=== PATIENT | female | born 1940 | race Caucasian/White ===

== ENCOUNTER 2018-02-21 01:10 | Inpatient (IN) | payer MEDICARE, MEDICAID ==
[2018-02-21 02:27] VITALS: BP 127/62
[2018-02-21] MEDS ORDERED: Maalox 30 mL Cup PO PRN (02:30)
[2018-02-21] MEDS ORDERED: Magnesium Hydroxide (MOM) 30 mL UDC PO PRN (02:30)
[2018-02-21 07:07] LABS: CHOLESTEROL 119 mg/dL (<200); HDL -HIGH DENSITY LIPOPROTEIN 53 mg/dL (23-92); TRIGLYCERIDES 49 mg/dL (<150)
[2018-02-21] MEDS: Multivitamin Tab PO SCH (08:30)
[2018-02-21] MEDS: Levothyroxine 0.05 Mg Tab PO SCH (08:31)
[2018-02-21] MEDS: Lidocaine 5% Patch TD SCH (08:32)
[2018-02-21] MEDS ORDERED: FLUOXETINE PO SCH (09:00)
--- NOTE | 2018-02-21 14:47 | History and Physical ---
History of Present Illness - HPI Chief Complaint: direct admission from acute hospital HPI: This is a 77-year old female who is a direct admission from [facility] due to danger to self ideation of driving off the jessi. Vital Signs: Last Vital Signs Temp 97.7 F 02/21/18 04:54 Pulse 77 02/21/18 04:54 Resp 18 02/21/18 04:54 BP 127/66 02/21/18 04:54 Pulse Ox 97 02/21/18 04:54 Past Medical History Other History: HTN, DM Family Medical History - Family Member Mother History Unknown: Yes Social History Smoke: No Alcohol: None Drugs: None Lives: Alone - Medications Home Medications: Home Medication Medication Instructions Recorded Type Atorvastatin Calcium [Lipitor] 40 mg PO DAILY 02/21/18 History Donepezil HCl [Aricept] 10 mg PO HS 02/21/18 History Fluoxetine [Fluoxetine HCl] 30 mg PO DAILY 02/21/18 History Gabapentin [Neurontin*] 300 mg PO HS 02/21/18 History Levothyroxine [Synthroid] 0.05 mg PO DAILY 02/21/18 History Lidocaine 5% Patch [Lidoderm 5% 5 % DAILY 02/21/18 History Patch] Memantine [Namenda] 5 mg PO DAILY 02/21/18 History metFORMIN [Glucophage] 500 mg PO BID 02/21/18 History - Allergies Allergies/Adverse Reactions: Allergies Allergy/AdvReac Type Severity Reaction Status Date / Time No Known Allergies Allergy Verified 02/21/18 02:14 Review of Systems - Review of Systems Constitutional: Report: No Significant Eyes: Report: No Significant Respiratory: Report: No Significant Cardiovascular: Report: No Significant Neurological: Report: No Significant Physical Exam - Physical Exam HEENT: Report: Ears Nose Throat within normal limits Neck: Report: Within normal limits Cardiovascular Systems: Report: +s1/s2 noted, Regular, Rate and Rhythm Respiratory: Report: Breath Sounds are within normal limits Abdomen: Report: Non-tender to palpation Back: Report: Inspection of back is within normal limits. Skin: Report: Color of skin is within normal limits, Warm, Dry Neuro/Psych: Report: Mood affect is within normal limits - Lab Results All Lab Results last 24 hours: Laboratory Results - last 24 hr 02/21/18 06:36 Triglycerides 49 Cholesterol 119 LDL Cholesterol Direct 52 L HDL Cholesterol 53 - Assessment Assessment: SI HTN DM - Plan Plan: hba1c to be obtained, if elevated will order accucheck ac+hs fall precautions continue current home meds.
[2018-02-21] MEDS: INSULIN ASPART, RECOMBINANT 100 UNITS/ML SUBQ SCH ×2 (17:19→21:01)
--- NOTE | 2018-02-21 22:01 | Psychiatric Evaluation ---
DATE OF SERVICE: 02/21/2018 IDENTIFYING DATA: The patient is a 77-year-old woman admitted for psychosis. CHIEF COMPLAINT: "I don't know, you tell me when I am now." HISTORY OF PRESENT ILLNESS: This is the first psychiatric hospitalization to [facility] for this patient who is reported to have been acutely agitated and confused and is not able to care for herself. Trying to get some information from the patient, but the patient has not been able to provide much of information. The patient is going on a tangent and is stating that she needs to give a kiss and a hug her to someone that has been taking care of her. The patient is stating that she has a daughter, but she has no clue of how to get in touch with her. The patient has not been able to provide much of information. Sleep and appetite prior to the hospitalization are reported to be poor. The patient is not giving any information that she is seeing any psychiatrist. PAST PSYCHIATRIC HISTORY: Details are not known. MEDICAL HISTORY AND PHYSICAL EXAMINATION: Requested to be done by Dr. Ryan. SUBSTANCE ABUSE HISTORY: None. PHYSICAL OR SEXUAL ABUSE HISTORY: None. LEGAL PROBLEMS: None at this time. STRENGTH AND ASSETS: The patient seems to be motivated. MENTAL STATUS EXAMINATION: The patient is a 77-year-old, looking her stated age, superficially cooperative. Mood is noted to be depressed. Affect is constricted. The patient is extremely anxious. The patient is not able to provide much of any information. The attention span and concentration are noted to be very poor. The patient is very confused, short and long-term are also noted to be very much impaired. The patient is not able to recall her date of . DIAGNOSTIC IMPRESSION: AXIS I: Psychotic disorder, not otherwise specified. IB. Dementia and behavioral change, secondary trait. AXIS II: None. AXIS III: As per Dr. Ryan. IMMEDIATE TREATMENT PLAN: The patient is going to be observed on inpatient unit, provided with supportive psychotherapy. The patient is going to be encouraged to participate in the groups and verbalize the concerns. Once stabilized, the patient is going to be discharged to [facility] to be followed up on an outpatient basis. JOB# [id number]
[2018-02-22] MEDS: INSULIN ASPART, RECOMBINANT 100 UNITS/ML SUBQ SCH ×4 (06:36→21:10)
[2018-02-22] MEDS: Levothyroxine 0.05 Mg Tab PO SCH (08:46)
[2018-02-22] MEDS: Multivitamin Tab PO SCH (08:47)
[2018-02-22] MEDS: Lidocaine 5% Patch TD SCH (08:47)
--- NOTE | 2018-02-22 15:53 | Internal Medicine Prog Note ---
Internal Medicine Subjective - Subjective Service Date: 02/22/18 Patient seen and examined:: with staff Patient is:: awake, verbal, other (with some confusion) Per staff patient has:: tolerating meds Internal Medicine Objective - Results Recent Labs: Laboratory Last Values POC Glucose 87 MG/DL (70 - 105) 02/21/18 21:00 Triglycerides 49 mg/dL (<150) 02/21/18 06:36 Cholesterol 119 mg/dL (<200) 02/21/18 06:36 LDL Cholesterol Direct 52 mg/dL (75-193) L 02/21/18 06:36 HDL Cholesterol 53 mg/dL (23-92) 02/21/18 06:36 - Physical Exam Vitals and I&O: Vital Signs Temp 97.6 F 02/22/18 05:30 Pulse 73 02/22/18 05:30 Resp 19 02/22/18 05:30 BP 121/69 02/22/18 05:30 Pulse Ox 98 02/22/18 05:30 Intake & Output 02/21/18 02/22/18 02/22/18 18:59 06:59 18:59 Intake Total 480 Balance 480 Intake: Oral 480 Other: # Voids 2 Stool Characteristics Soft Soft Soft Active Medications: Current Medications Acetaminophen (Tylenol) 650 mg PO Q4HR PRN PRN Reason: Mild Pain / Temp above 100 Stop: 04/22/18 02:29 Al Hydrox/Mg Hydrox/Simethicone (Maalox) 30 ml PO Q4HR PRN PRN Reason: GI DISTRESS Stop: 04/22/18 02:29 Atorvastatin Calcium (Lipitor) 40 mg PO DAILY COUNT INCLUDES [facility] Stop: 04/22/18 08:59 Last Admin: 02/22/18 08:45 Dose: 40 mg Donepezil HCl (Aricept) 10 mg PO HS COUNT INCLUDES [facility] Stop: 04/22/18 20:59 Last Admin: 02/21/18 21:03 Dose: 10 mg Fluoxetine HCl (Prozac) 20 mg PO DAILY COUNT INCLUDES THE [facility] Stop: 04/23/18 08:59 Last Admin: 02/22/18 08:46 Dose: 20 mg Gabapentin (Neurontin) 300 mg PO HS COUNT INCLUDES THE [facility] Stop: 04/22/18 20:59 Last Admin: 02/21/18 21:02 Dose: 300 mg Insulin Aspart (Novolog) 0 units SUBQ ACHS COUNT INCLUDES THE [facility]; Protocol Stop: 04/22/18 16:29 Last Admin: 02/22/18 12:13 Dose: Not Given Levothyroxine Sodium (Synthroid) 0.05 mg PO DAILY COUNT INCLUDES THE [facility] Stop: 04/22/18 08:59 Last Admin: 02/22/18 08:46 Dose: 0.05 mg Lidocaine (Lidoderm 5% Patch) 1 patch TD DAILY [facility] Stop: 04/22/18 08:59 Last Admin: 02/22/18 08:47 Dose: 1 patch Lorazepam (Ativan) 0.5 mg PO Q4HR PRN; Protocol PRN Reason: Anxiety Stop: 03/23/18 02:29 Magnesium Hydroxide (Milk Of Magnesia) 30 ml PO HS PRN PRN Reason: Constipation Memantine (Namenda) 5 mg PO DAILY COUNT INCLUDES THE [facility] Stop: 04/22/18 08:59 Last Admin: 02/22/18 08:54 Dose: 5 mg Metformin HCl (Glucophage) 500 mg PO BIDWM COUNT INCLUDES THE [facility] Stop: 04/22/18 07:59 Last Admin: 02/22/18 08:45 Dose: 500 mg Multivitamins/Vitamin C (Theragran) 1 tab PO DAILY [facility] Stop: 04/22/18 08:59 Last Admin: 02/22/18 08:47 Dose: 1 tab Zolpidem Tartrate (Ambien) 5 mg PO HS PRN PRN Reason: Insomnia Stop: 04/22/18 02:29 General: alert HEENT: NC/AT, PERRLA Neck: Supple Lungs: CTAB Cardiovascular: RRR, Normal S1, Normal S2, without murmur Abdomen: soft, non-tender, non-distended Neurological: alert Internal Medicine Assmt/Plan - Assessment Assessment: SI HTN DM - Plan Plan: await for a1c fall precautions continue current plan of care
--- NOTE | 2018-02-22 23:43 | Progress Notes ---
DATE: 02/22/2018 Staff was spoken to. The patient is interviewed. Mood is noted to be irritable. Affect is constricted. Insight and judgment at this time are noted to be still impaired. Impulse control is noted to be poor. Coping skills are also noted to be very poor. The patient has been a little bit clearer this morning compared to last night. The patient has been confused at night time yesterday. The patient is stating that there is nothing wrong with her. She should be with her daughter. The patient's daughter is [place]. The patient is stating that she is going to go there. The patient has no insight into her illness. The patient is not able to care for self. The patient has both short term memories major problem long-term memory seems to be little bit fair. ASSESSMENT: The patient is still psychotic and demented. PLAN: To continue the patient with the supportive therapy and encourage the patient to verbalize the consent rather than to act out. [facility]# [id number]
[2018-02-23] MEDS: INSULIN ASPART, RECOMBINANT 100 UNITS/ML SUBQ SCH ×4 (06:36→21:45)
[2018-02-23] MEDS: Multivitamin Tab PO SCH (08:30)
[2018-02-23] MEDS: Levothyroxine 0.05 Mg Tab PO SCH (08:30)
[2018-02-23] MEDS: Lidocaine 5% Patch TD SCH (09:49)
--- NOTE | 2018-02-23 11:22 | Progress Notes ---
DATE: 02/23/2018 SUBJECTIVE: Staff was spoken to. The patient is interviewed. Mood is noted to be anxious and depressed. Affect is constricted. Coping skills are noted to be very poor. The patient is getting easily frustrated. No side effects to the medications are noted. The patient has been currently on Prozac 20 mg and has been able to tolerate the medications. No side effect to the medications are noted. ASSESSMENT: The patient is still depressed and confused. PLAN: To continue the patient with the supportive therapy. We encouraged the patient to verbalize the concerns rather than to act out. The patient has no place to return at this time. JOB# [id number]
--- NOTE | 2018-02-23 13:25 | Internal Medicine Prog Note ---
Internal Medicine Subjective - Subjective Patient seen and examined:: with staff, chart reviewed Patient is:: awake, verbal, interactive, other (with some confusion) Per staff patient has:: no adverse event, no episodes of fall, poor appetite, tolerating meds Internal Medicine Objective - Results Recent Labs: Laboratory Last Values POC Glucose 97 MG/DL (70 - 105) 02/23/18 11:22 Triglycerides 49 mg/dL (<150) 02/21/18 06:36 Cholesterol 119 mg/dL (<200) 02/21/18 06:36 LDL Cholesterol Direct 52 mg/dL (75-193) L 02/21/18 06:36 HDL Cholesterol 53 mg/dL (23-92) 02/21/18 06:36 - Physical Exam Vitals and I&O: Vital Signs Temp 98.1 F 02/23/18 06:51 Pulse 68 02/23/18 06:51 Resp 19 02/23/18 06:51 BP 106/69 02/23/18 06:51 Pulse Ox 98 02/23/18 06:51 Intake & Output 02/22/18 02/23/18 02/23/18 18:59 06:59 18:59 Intake Total 120 Balance 120 Intake: Oral 120 Other: # Voids 3 Stool Characteristics Soft Soft Soft Active Medications: Current Medications Acetaminophen (Tylenol) 650 mg PO Q4HR PRN PRN Reason: Mild Pain / Temp above 100 Stop: 04/22/18 02:29 Al Hydrox/Mg Hydrox/Simethicone (Maalox) 30 ml PO Q4HR PRN PRN Reason: GI DISTRESS Stop: 04/22/18 02:29 Atorvastatin Calcium (Lipitor) 40 mg PO DAILY [facility] Stop: 04/22/18 08:59 Last Admin: 02/23/18 08:32 Dose: 40 mg Donepezil HCl (Aricept) 10 mg PO HS [facility] Stop: 04/22/18 20:59 Last Admin: 02/22/18 21:09 Dose: 10 mg Fluoxetine HCl (Prozac) 20 mg PO DAILY [facility] Stop: 04/23/18 08:59 Last Admin: 02/23/18 08:31 Dose: 20 mg Gabapentin (Neurontin) 300 mg PO HS [facility] Stop: 04/22/18 20:59 Last Admin: 02/22/18 21:09 Dose: 300 mg Insulin Aspart (Novolog) 0 units SUBQ ACHS [facility]; Protocol Stop: 04/22/18 16:29 Last Admin: 02/23/18 11:45 Dose: Not Given Levothyroxine Sodium (Synthroid) 0.05 mg PO DAILY [facility] Stop: 04/22/18 08:59 Last Admin: 02/23/18 08:30 Dose: 0.05 mg Lidocaine (Lidoderm 5% Patch) 1 patch TD DAILY [facility] Stop: 04/22/18 08:59 Last Admin: 02/23/18 09:49 Dose: 1 patch Lorazepam (Ativan) 0.5 mg PO Q4HR PRN; Protocol PRN Reason: Anxiety Stop: 03/23/18 02:29 Magnesium Hydroxide (Milk Of Magnesia) 30 ml PO HS PRN PRN Reason: Constipation Memantine (Namenda) 5 mg PO DAILY [facility] Stop: 04/22/18 08:59 Last Admin: 02/23/18 08:30 Dose: 5 mg Metformin HCl (Glucophage) 500 mg PO BIDWM [facility] Stop: 04/22/18 07:59 Last Admin: 02/23/18 08:31 Dose: 500 mg Multivitamins/Vitamin C (Theragran) 1 tab PO DAILY [facility] Stop: 04/22/18 08:59 Last Admin: 02/23/18 08:30 Dose: 1 tab Zolpidem Tartrate (Ambien) 5 mg PO HS PRN PRN Reason: Insomnia Stop: 04/22/18 02:29 General: alert HEENT: NC/AT, PERRLA Neck: Supple Lungs: CTAB Cardiovascular: RRR, Normal S1, Normal S2, without murmur Abdomen: soft, non-tender, non-distended Extremities: excoriation Neurological: alert Internal Medicine Assmt/Plan - Assessment Assessment: hypothyroidism high chol HTN DM - Plan Plan: await for a1c fall precautions continue current plan of care - Plan Plan: ada iss cont on synthroid cpm helen rn
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
[2018-02-24] MEDS: INSULIN ASPART, RECOMBINANT 100 UNITS/ML SUBQ SCH ×4 (06:33→21:55)
[2018-02-24] MEDS: Multivitamin Tab PO SCH (08:40)
[2018-02-24] MEDS: Lidocaine 5% Patch TD SCH (08:46)
--- NOTE | 2018-02-24 12:51 | Internal Medicine Prog Note ---
Internal Medicine Subjective - Subjective Patient seen and examined:: with staff, chart reviewed Patient is:: awake, verbal, interactive, other (with some confusion) Per staff patient has:: no adverse event, no episodes of fall, poor appetite, tolerating meds Internal Medicine Objective - Results Recent Labs: Laboratory Last Values POC Glucose 100 MG/DL (70 - 105) 02/24/18 06:08 Triglycerides 49 mg/dL (<150) 02/21/18 06:36 Cholesterol 119 mg/dL (<200) 02/21/18 06:36 LDL Cholesterol Direct 52 mg/dL (75-193) L 02/21/18 06:36 HDL Cholesterol 53 mg/dL (23-92) 02/21/18 06:36 - Physical Exam Vitals and I&O: Vital Signs Temp 98 F 02/23/18 20:17 Pulse 59 02/23/18 20:17 Resp 19 02/23/18 20:17 BP 105/52 02/23/18 20:17 Pulse Ox 95 02/23/18 20:17 Intake & Output 02/23/18 02/24/18 02/24/18 18:59 06:59 18:59 Intake Total 120 Balance 120 Intake: Oral 120 Other: # Voids 1 Stool Characteristics Soft Soft Soft Active Medications: Current Medications Acetaminophen (Tylenol) 650 mg PO Q4HR PRN PRN Reason: Mild Pain / Temp above 100 Stop: 04/22/18 02:29 Al Hydrox/Mg Hydrox/Simethicone (Maalox) 30 ml PO Q4HR PRN PRN Reason: GI DISTRESS Stop: 04/22/18 02:29 Atorvastatin Calcium (Lipitor) 40 mg PO DAILY [facility] Stop: 04/22/18 08:59 Last Admin: 02/24/18 08:38 Dose: 40 mg Donepezil HCl (Aricept) 10 mg PO HS [facility] Stop: 04/22/18 20:59 Last Admin: 02/23/18 21:45 Dose: 10 mg Fluoxetine HCl (Prozac) 20 mg PO DAILY [facility] Stop: 04/23/18 08:59 Last Admin: 02/24/18 08:39 Dose: 20 mg Gabapentin (Neurontin) 300 mg PO HS [facility] Stop: 04/22/18 20:59 Last Admin: 02/23/18 21:45 Dose: 300 mg Insulin Aspart (Novolog) 0 units SUBQ ACHS [facility]; Protocol Stop: 04/22/18 16:29 Last Admin: 02/24/18 06:33 Dose: Not Given Levothyroxine Sodium (Synthroid) 0.05 mg PO DAILY [facility] Stop: 04/22/18 08:59 Last Admin: 02/23/18 08:30 Dose: 0.05 mg Lidocaine (Lidoderm 5% Patch) 1 patch TD DAILY [facility] Stop: 04/22/18 08:59 Last Admin: 02/24/18 08:46 Dose: 1 patch Lorazepam (Ativan) 0.5 mg PO Q4HR PRN; Protocol PRN Reason: Anxiety Stop: 03/23/18 02:29 Last Admin: 02/24/18 12:42 Dose: 0.5 mg Magnesium Hydroxide (Milk Of Magnesia) 30 ml PO HS PRN PRN Reason: Constipation Memantine (Namenda) 5 mg PO DAILY [facility] Stop: 04/22/18 08:59 Last Admin: 02/24/18 08:40 Dose: 5 mg Metformin HCl (Glucophage) 500 mg PO BIDWM [facility] Stop: 04/22/18 07:59 Last Admin: 02/24/18 08:40 Dose: 500 mg Multivitamins/Vitamin C (Theragran) 1 tab PO DAILY [facility] Stop: 04/22/18 08:59 Last Admin: 02/24/18 08:40 Dose: 1 tab Zolpidem Tartrate (Ambien) 5 mg PO HS PRN PRN Reason: Insomnia Stop: 04/22/18 02:29 General: alert HEENT: NC/AT, PERRLA Neck: Supple Lungs: CTAB Cardiovascular: RRR, Normal S1, Normal S2, without murmur Abdomen: soft, non-tender, non-distended Extremities: excoriation Neurological: alert Internal Medicine Assmt/Plan - Assessment Assessment: hypothyroidism high chol HTN DM - Plan Plan: await for a1c fall precautions continue current plan of care - Plan Plan: ada iss cont on synthroid cpm helen rn
--- NOTE | 2018-02-25 00:47 | Progress Notes ---
DATE: 02/24/2018 SUBJECTIVE: Staff was spoken to. The patient is interviewed. Mood is noted to be irritable. Affect is constricted. The patient is stating that there is no reason for her to be in the hospital and that she should be back at home. The patient is stating that she has a plan to go to [place] with her daughter. The patient, however, does not know the number of her daughter. The patient has been currently on Namenda and Aricept and the patient is also getting the Prozac 20 mg for her depression. ASSESSMENT: The patient is still confused and paranoid. PLAN: To continue the patient with the supportive therapy. Encouraged the patient to verbalize the concerns rather than to act out. JOB# [id number]
[2018-02-25] MEDS: Levothyroxine 0.05 Mg Tab PO SCH (06:38)
[2018-02-25] MEDS: INSULIN ASPART, RECOMBINANT 100 UNITS/ML SUBQ SCH ×3 (06:39→21:30)
[2018-02-25] MEDS: Multivitamin Tab PO SCH (08:17)
[2018-02-25] MEDS: Lidocaine 5% Patch TD SCH (08:39)
[2018-02-25] MEDS: Diphenoxylate/Atropine 2.5mg Tab PO PRN (12:52)
--- NOTE | 2018-02-25 12:55 | Progress Notes ---
DATE: 02/25/2018 SUBJECTIVE: Staff was spoken to. The patient is interviewed. Mood is noted to be irritable. Affect is constricted. Coping skills at this time are noted to be poor. The patient has been having difficult time to cope with the stress. No side effects to the medications are noted at this time. The patient has been depressed and 1 minute. The patient is stating that she has been waiting for the geriatric social worker to call her daughter and the next minute, she is saying that she already spoke to her daughter and it is okay with her to go. The patient is confabulating at this time and not able to care for self. The patient is going to be continued with Prozac and followed with the supportive therapy. [facility]# [id number]
--- NOTE | 2018-02-25 16:08 | Internal Medicine Prog Note ---
Internal Medicine Subjective - Subjective Service Date: 02/25/18 Patient is:: awake, verbal, interactive, other (with some confusion) Per staff patient has:: no adverse event, no episodes of fall, poor appetite, tolerating meds Internal Medicine Objective - Results Recent Labs: Laboratory Last Values POC Glucose 124 MG/DL (70 - 105) H 02/25/18 11:50 Triglycerides 49 mg/dL (<150) 02/21/18 06:36 Cholesterol 119 mg/dL (<200) 02/21/18 06:36 LDL Cholesterol Direct 52 mg/dL (75-193) L 02/21/18 06:36 HDL Cholesterol 53 mg/dL (23-92) 02/21/18 06:36 - Physical Exam Vitals and I&O: Vital Signs Temp 97.6 F 02/25/18 14:00 Pulse 66 02/25/18 14:00 Resp 18 02/25/18 14:00 BP 100/58 02/25/18 14:00 Pulse Ox 95 02/25/18 14:00 Intake & Output 02/24/18 02/25/18 02/25/18 18:59 06:59 18:59 Intake Total 240 Balance 240 Intake: Oral 240 Other: # Voids 3 # Bowel Movements 4 0 Stool Characteristics Soft Soft Soft Active Medications: Current Medications Acetaminophen (Tylenol) 650 mg PO Q4HR PRN PRN Reason: Mild Pain / Temp above 100 Stop: 04/22/18 02:29 Al Hydrox/Mg Hydrox/Simethicone (Maalox) 30 ml PO Q4HR PRN PRN Reason: GI DISTRESS Stop: 04/22/18 02:29 Atorvastatin Calcium (Lipitor) 40 mg PO DAILY [facility] Stop: 04/22/18 08:59 Last Admin: 02/25/18 08:17 Dose: 40 mg Diphenoxylate HCl/Atropine (Lomotil) 1 tab PO Q4H PRN PRN Reason: Diarrhea Stop: 04/26/18 11:56 Last Admin: 02/25/18 12:52 Dose: 1 tab Donepezil HCl (Aricept) 10 mg PO HS [facility] Stop: 04/22/18 20:59 Last Admin: 02/24/18 21:40 Dose: 10 mg Fluoxetine HCl (Prozac) 20 mg PO DAILY [facility] Stop: 04/23/18 08:59 Last Admin: 02/25/18 08:17 Dose: 20 mg Gabapentin (Neurontin) 300 mg PO HS [facility] Stop: 04/22/18 20:59 Last Admin: 02/24/18 21:39 Dose: 300 mg Insulin Aspart (Novolog) 0 units SUBQ ACHS [facility]; Protocol Stop: 04/22/18 16:29 Last Admin: 02/25/18 12:00 Dose: Not Given Levothyroxine Sodium (Synthroid) 0.05 mg PO QDAC [facility] Stop: 04/26/18 07:29 Last Admin: 02/25/18 06:38 Dose: 0.05 mg Lidocaine (Lidoderm 5% Patch) 1 patch TD DAILY [facility] Stop: 04/22/18 08:59 Last Admin: 02/25/18 08:39 Dose: 1 patch Lorazepam (Ativan) 0.5 mg PO Q4HR PRN; Protocol PRN Reason: Anxiety Stop: 03/23/18 02:29 Last Admin: 02/24/18 12:42 Dose: 0.5 mg Magnesium Hydroxide (Milk Of Magnesia) 30 ml PO HS PRN PRN Reason: Constipation Memantine (Namenda) 5 mg PO DAILY [facility] Stop: 04/22/18 08:59 Last Admin: 02/25/18 08:17 Dose: 5 mg Metformin HCl (Glucophage) 500 mg PO BIDWM [facility] Stop: 04/22/18 07:59 Last Admin: 02/25/18 08:24 Dose: Not Given Multivitamins/Vitamin C (Theragran) 1 tab PO DAILY [facility] Stop: 04/22/18 08:59 Last Admin: 02/25/18 08:17 Dose: 1 tab Zolpidem Tartrate (Ambien) 5 mg PO HS PRN PRN Reason: Insomnia Stop: 04/22/18 02:29 General: alert HEENT: NC/AT, PERRLA Neck: Supple Lungs: CTAB Cardiovascular: RRR, Normal S1, Normal S2, without murmur Abdomen: soft, non-tender, non-distended Extremities: excoriation Neurological: alert Internal Medicine Assmt/Plan - Assessment Assessment: SI HTN DM - Plan Plan: await for a1c fall precautions continue current plan of care Nutritional Asmnt/Malnutr-PDOC - Dietary Evaluation Malnutrition Findings (Please click <Entered> for more info): Nutritional Asmnt/Malnutrition Start: 02/25/18 09: 59 Text: Status: Complete Freq: Protocol: Document 02/25/18 09:59 CLEOPATRA (Rec: 02/25/18 10:05 CLEOPATRA JAMA- [email or web address]) Nutritional Asmnt/Malnutrition Patient General Information Diagnosis psychosis Pertinent Medical Hx/Surgical Hx HTN, DM, SI, high cholesterol, hypothyroidism Subjective Information Pt asleep at time of visit Current Diet Order/ Nutrition Support cardiac diabetic diet Pertinent Medications maalox, lipitor, novolog, synthroid, MOM, glucophage, theragran Pertinent Labs no labs Nutritional Hx/Data Height 5 ft 2 in Height (Calculated Centimeters) 157.5 Current Weight (lbs) 147 lb Weight (Calculated Kilograms) 66.7 Weight (Calculated Grams) 26397.1 Body Mass Index (BMI) 26.9 Weight Status Overweight GI Symptoms GI Symptoms None Last BM 02/24 Cultural/Ethnic/Orthodoxy Belief unknown Usual diet at home cardiac Skin Integrity/Comment: ramesh score 22 Current %PO Fair (50-74%) Estimated Nutritional Goals BEE in Kcals: Using Current wt Calories/Kcals/Kg 25-30kcals/kg Kcals Calculated 1675-2010kcals/day Protein: Using Current wt Protein g/kg/kg Protein Calculated 67g/day Fluid: ml 1675-2010ml/day (1ml/kcal) Nutritional Problem 1. Problem Problem No nutrition diagnosis at this time Intervention/Recommendation Comments Recommend continuing Cardiac diabetic diet. Expected Outcomes/Goals Expected Outcomes/Goals PO intake >75% of meals
[2018-02-26] MEDS: Levothyroxine 0.05 Mg Tab PO SCH (06:52)
[2018-02-26] MEDS: Multivitamin Tab PO SCH (09:29)
[2018-02-26] MEDS: INSULIN ASPART, RECOMBINANT 100 UNITS/ML SUBQ SCH ×3 (12:02→21:17)
[2018-02-26] MEDS: Lidocaine 5% Patch TD SCH (12:03)
--- NOTE | 2018-02-26 15:52 | Internal Medicine Prog Note ---
Internal Medicine Subjective - Subjective Service Date: 02/26/18 Patient is:: awake, verbal, interactive, other (with some confusion) Per staff patient has:: no adverse event, no episodes of fall, poor appetite, tolerating meds Internal Medicine Objective - Results Recent Labs: Laboratory Last Values POC Glucose 114 MG/DL (70 - 105) H 02/26/18 12:01 Triglycerides 49 mg/dL (<150) 02/21/18 06:36 Cholesterol 119 mg/dL (<200) 02/21/18 06:36 LDL Cholesterol Direct 52 mg/dL (75-193) L 02/21/18 06:36 HDL Cholesterol 53 mg/dL (23-92) 02/21/18 06:36 - Physical Exam Vitals and I&O: Vital Signs Temp 97.2 F 02/26/18 06:49 Pulse 61 02/26/18 06:49 Resp 20 02/26/18 06:49 BP 118/61 02/26/18 06:49 Pulse Ox 98 02/26/18 06:49 Intake & Output 02/25/18 02/26/18 02/26/18 18:59 06:59 18:59 Intake Total 800 370 Output Total 0 Balance 800 370 Intake: Oral 800 370 Output: Stool 0 Other: # Voids 3 3 # Bowel Movements 1 Stool Characteristics Soft Soft Soft Active Medications: Current Medications Acetaminophen (Tylenol) 650 mg PO Q4HR PRN PRN Reason: Mild Pain / Temp above 100 Stop: 04/22/18 02:29 Al Hydrox/Mg Hydrox/Simethicone (Maalox) 30 ml PO Q4HR PRN PRN Reason: GI DISTRESS Stop: 04/22/18 02:29 Atorvastatin Calcium (Lipitor) 40 mg PO DAILY [facility] Stop: 04/22/18 08:59 Last Admin: 02/26/18 09:28 Dose: 40 mg Diphenoxylate HCl/Atropine (Lomotil) 1 tab PO Q4H PRN PRN Reason: Diarrhea Stop: 04/26/18 11:56 Last Admin: 02/25/18 12:52 Dose: 1 tab Donepezil HCl (Aricept) 10 mg PO HS [facility] Stop: 04/22/18 20:59 Last Admin: 02/25/18 22:18 Dose: 10 mg Fluoxetine HCl (Prozac) 20 mg PO DAILY [facility] Stop: 04/23/18 08:59 Last Admin: 02/26/18 09:29 Dose: 20 mg Gabapentin (Neurontin) 300 mg PO HS [facility] Stop: 04/22/18 20:59 Last Admin: 02/25/18 22:18 Dose: 300 mg Insulin Aspart (Novolog) 0 units SUBQ ACHS [facility]; Protocol Stop: 04/22/18 16:29 Last Admin: 02/26/18 12:02 Dose: Not Given Levothyroxine Sodium (Synthroid) 0.05 mg PO QDAC [facility] Stop: 04/26/18 07:29 Last Admin: 02/26/18 06:52 Dose: 0.05 mg Lidocaine (Lidoderm 5% Patch) 1 patch TD DAILY [facility] Stop: 04/22/18 08:59 Last Admin: 02/26/18 12:03 Dose: Not Given Lorazepam (Ativan) 0.5 mg PO Q4HR PRN; Protocol PRN Reason: Anxiety Stop: 03/23/18 02:29 Last Admin: 02/24/18 12:42 Dose: 0.5 mg Magnesium Hydroxide (Milk Of Magnesia) 30 ml PO HS PRN PRN Reason: Constipation Memantine (Namenda) 5 mg PO DAILY [facility] Stop: 04/22/18 08:59 Last Admin: 02/26/18 09:29 Dose: 5 mg Metformin HCl (Glucophage) 500 mg PO BIDWM [facility] Stop: 04/22/18 07:59 Last Admin: 02/26/18 09:29 Dose: 500 mg Multivitamins/Vitamin C (Theragran) 1 tab PO DAILY [facility] Stop: 04/22/18 08:59 Last Admin: 02/26/18 09:29 Dose: 1 tab Zolpidem Tartrate (Ambien) 5 mg PO HS PRN PRN Reason: Insomnia Stop: 04/22/18 02:29 General: alert HEENT: NC/AT, PERRLA Neck: Supple Lungs: CTAB Cardiovascular: RRR, Normal S1, Normal S2, without murmur Abdomen: soft, non-tender, non-distended Extremities: excoriation Neurological: alert Internal Medicine Assmt/Plan - Assessment Assessment: SI HTN DM - Plan Plan: await for a1c fall precautions continue current plan of care Nutritional Asmnt/Malnutr-PDOC - Dietary Evaluation Malnutrition Findings (Please click <Entered> for more info): Nutritional Asmnt/Malnutrition Start: 02/25/18 09: 59 Text: Status: Complete Freq: Protocol: Document 02/25/18 09:59 CLEOPATRA (Rec: 02/25/18 10:05 CLEOPATRA JAMA- [email or web address]) Nutritional Asmnt/Malnutrition Patient General Information Diagnosis psychosis Pertinent Medical Hx/Surgical Hx HTN, DM, SI, high cholesterol, hypothyroidism Subjective Information Pt asleep at time of visit Current Diet Order/ Nutrition Support cardiac diabetic diet Pertinent Medications maalox, lipitor, novolog, synthroid, MOM, glucophage, theragran Pertinent Labs no labs Nutritional Hx/Data Height 5 ft 2 in Height (Calculated Centimeters) 157.5 Current Weight (lbs) 147 lb Weight (Calculated Kilograms) 66.7 Weight (Calculated Grams) 33611.1 Body Mass Index (BMI) 26.9 Weight Status Overweight GI Symptoms GI Symptoms None Last BM 02/24 Cultural/Ethnic/Pentecostalism Belief unknown Usual diet at home cardiac Skin Integrity/Comment: ramesh score 22 Current %PO Fair (50-74%) Estimated Nutritional Goals BEE in Kcals: Using Current wt Calories/Kcals/Kg 25-30kcals/kg Kcals Calculated 1675-2010kcals/day Protein: Using Current wt Protein g/kg/kg Protein Calculated 67g/day Fluid: ml 1675-2010ml/day (1ml/kcal) Nutritional Problem 1. Problem Problem No nutrition diagnosis at this time Intervention/Recommendation Comments Recommend continuing Cardiac diabetic diet. Expected Outcomes/Goals Expected Outcomes/Goals PO intake >75% of meals
--- NOTE | 2018-02-26 20:59 | Progress Notes ---
DATE: 02/26/2018 PSYCHIATRIC PROGRESS NOTE SUBJECTIVE: Staff was spoken to. The patient is interviewed. Mood is noted to be anxious. The patient's insight and judgment at this time are noted to be still impaired. The patient has some memory problems, but the patient is reporting that she has to get back to her place and she states that when asked about the place where she has been referring to, the patient has not been able to remember it. manager in home has been spoken to the idea is to get the patient to the residential facility first and once the patient is stabilized over there, the patient's daughter wants to take her to the [place]. The patient is currently on Seroquel 25 mg twice a day and ____ 250 mg twice a day. PLAN: The patient is going to be closely monitored and encouraged to verbalize the concerns rather than to act out. JOB# [id number]
[2018-02-27] MEDS: Levothyroxine 0.05 Mg Tab PO SCH (06:33)
[2018-02-27] MEDS: INSULIN ASPART, RECOMBINANT 100 UNITS/ML SUBQ SCH ×4 (06:33→20:23)
[2018-02-27] MEDS: Multivitamin Tab PO SCH (09:04)
--- NOTE | 2018-02-27 14:01 | Internal Medicine Prog Note ---
Internal Medicine Subjective - Subjective Service Date: 02/27/18 Patient is:: awake, verbal, interactive, other (with some confusion) Per staff patient has:: no adverse event, no episodes of fall, poor appetite, tolerating meds Internal Medicine Objective - Results Recent Labs: Laboratory Last Values POC Glucose 94 MG/DL (70 - 105) 02/27/18 06:20 Triglycerides 49 mg/dL (<150) 02/21/18 06:36 Cholesterol 119 mg/dL (<200) 02/21/18 06:36 LDL Cholesterol Direct 52 mg/dL (75-193) L 02/21/18 06:36 HDL Cholesterol 53 mg/dL (23-92) 02/21/18 06:36 - Physical Exam Vitals and I&O: Vital Signs Temp 97.8 F 02/27/18 06:27 Pulse 57 02/27/18 06:27 Resp 19 02/27/18 06:27 BP 118/57 02/27/18 06:27 Pulse Ox 98 02/27/18 06:27 Intake & Output 02/26/18 02/27/18 02/27/18 18:59 06:59 18:59 Intake Total 300 Balance 300 Intake: Other 300 Other: # Voids 3 # Bowel Movements 0 Stool Characteristics Soft Soft Active Medications: Current Medications Acetaminophen (Tylenol) 650 mg PO Q4HR PRN PRN Reason: Mild Pain / Temp above 100 Stop: 04/22/18 02:29 Al Hydrox/Mg Hydrox/Simethicone (Maalox) 30 ml PO Q4HR PRN PRN Reason: GI DISTRESS Stop: 04/22/18 02:29 Atorvastatin Calcium (Lipitor) 40 mg PO DAILY [facility] Stop: 04/22/18 08:59 Last Admin: 02/27/18 09:04 Dose: 40 mg Diphenoxylate HCl/Atropine (Lomotil) 1 tab PO Q4H PRN PRN Reason: Diarrhea Stop: 04/26/18 11:56 Last Admin: 02/25/18 12:52 Dose: 1 tab Donepezil HCl (Aricept) 10 mg PO HS [facility] Stop: 04/22/18 20:59 Last Admin: 02/26/18 20:32 Dose: 10 mg Fluoxetine HCl (Prozac) 20 mg PO DAILY [facility] Stop: 04/23/18 08:59 Last Admin: 02/27/18 09:04 Dose: 20 mg Gabapentin (Neurontin) 300 mg PO HS [facility] Stop: 04/22/18 20:59 Last Admin: 02/26/18 20:32 Dose: 300 mg Insulin Aspart (Novolog) 0 units SUBQ ACHS [facility]; Protocol Stop: 04/22/18 16:29 Last Admin: 02/27/18 12:11 Dose: Not Given Levothyroxine Sodium (Synthroid) 0.05 mg PO QDAC [facility] Stop: 04/26/18 07:29 Last Admin: 02/27/18 06:33 Dose: 0.05 mg Lidocaine (Lidoderm 5% Patch) 1 patch TD DAILY [facility] Stop: 04/22/18 08:59 Last Admin: 02/26/18 12:03 Dose: Not Given Lorazepam (Ativan) 0.5 mg PO Q4HR PRN; Protocol PRN Reason: Anxiety Stop: 03/23/18 02:29 Last Admin: 02/24/18 12:42 Dose: 0.5 mg Magnesium Hydroxide (Milk Of Magnesia) 30 ml PO HS PRN PRN Reason: Constipation Memantine (Namenda) 5 mg PO DAILY [facility] Stop: 04/22/18 08:59 Last Admin: 02/27/18 09:04 Dose: 5 mg Metformin HCl (Glucophage) 500 mg PO BIDWM [facility] Stop: 04/22/18 07:59 Last Admin: 02/27/18 09:04 Dose: 500 mg Multivitamins/Vitamin C (Theragran) 1 tab PO DAILY [facility] Stop: 04/22/18 08:59 Last Admin: 02/27/18 09:04 Dose: 1 tab Zolpidem Tartrate (Ambien) 5 mg PO HS PRN PRN Reason: Insomnia Stop: 04/22/18 02:29 General: alert HEENT: NC/AT, PERRLA Neck: Supple Lungs: CTAB Cardiovascular: RRR, Normal S1, Normal S2, without murmur Abdomen: soft, non-tender, non-distended Extremities: excoriation Neurological: alert Internal Medicine Assmt/Plan - Assessment Assessment: SI HTN DM - Plan Plan: await for a1c fall precautions continue current plan of care Nutritional Asmnt/Malnutr-PDOC - Dietary Evaluation Malnutrition Findings (Please click <Entered> for more info): Nutritional Asmnt/Malnutrition Start: 02/25/18 09: 59 Text: Status: Complete Freq: Protocol: Document 02/25/18 09:59 CLEOPATRA (Rec: 02/25/18 10:05 CLEOPATRA SCHREIBERN- [email or web address]) Nutritional Asmnt/Malnutrition Patient General Information Diagnosis psychosis Pertinent Medical Hx/Surgical Hx HTN, DM, SI, high cholesterol, hypothyroidism Subjective Information Pt asleep at time of visit Current Diet Order/ Nutrition Support cardiac diabetic diet Pertinent Medications maalox, lipitor, novolog, synthroid, MOM, glucophage, theragran Pertinent Labs no labs Nutritional Hx/Data Height 5 ft 2 in Height (Calculated Centimeters) 157.5 Current Weight (lbs) 147 lb Weight (Calculated Kilograms) 66.7 Weight (Calculated Grams) 92872.1 Body Mass Index (BMI) 26.9 Weight Status Overweight GI Symptoms GI Symptoms None Last BM 02/24 Cultural/Ethnic/Pentecostal Belief unknown Usual diet at home cardiac Skin Integrity/Comment: ramesh score 22 Current %PO Fair (50-74%) Estimated Nutritional Goals BEE in Kcals: Using Current wt Calories/Kcals/Kg 25-30kcals/kg Kcals Calculated 1675-2010kcals/day Protein: Using Current wt Protein g/kg/kg Protein Calculated 67g/day Fluid: ml 1675-2010ml/day (1ml/kcal) Nutritional Problem 1. Problem Problem No nutrition diagnosis at this time Intervention/Recommendation Comments Recommend continuing Cardiac diabetic diet. Expected Outcomes/Goals Expected Outcomes/Goals PO intake >75% of meals
[2018-02-27] MEDS: Lidocaine 5% Patch TD SCH (17:17)
--- NOTE | 2018-02-28 00:07 | Progress Notes ---
DATE: 02/27/2018 PSYCHIATRIC PROGRESS NOTE SUBJECTIVE: Staff was spoken to. The patient is interviewed. Mood is noted to be depressed. Affect is constricted. The patient is tearful and crying. The patient is confused. The patient is stating that she has not done anything bad and she needs to go back and the staff are reporting that the patient's daughter has called and mentioned that the patient needs to go to a care home facility from there, she is going to be arranging the patient to be transferred to [place]. ASSESSMENT: The patient is still depressed. PLAN: To continue the patient with the supportive therapy and I encouraged the patient to verbalize the concerns rather than to act out. JOB# [id number]
[2018-02-28] MEDS: Levothyroxine 0.05 Mg Tab PO SCH (06:34)
[2018-02-28] MEDS: INSULIN ASPART, RECOMBINANT 100 UNITS/ML SUBQ SCH ×3 (06:34→20:48)
[2018-02-28] MEDS: Lidocaine 5% Patch TD SCH (08:40)
[2018-02-28] MEDS: Multivitamin Tab PO SCH (08:40)
--- NOTE | 2018-02-28 17:05 | Internal Medicine Prog Note ---
Internal Medicine Subjective - Subjective Service Date: 02/28/18 Patient is:: awake, verbal, interactive, other (with some confusion) Per staff patient has:: no adverse event, no episodes of fall, poor appetite, tolerating meds Internal Medicine Objective - Results Recent Labs: Laboratory Last Values POC Glucose 85 MG/DL (70 - 105) 02/28/18 11:37 Triglycerides 49 mg/dL (<150) 02/21/18 06:36 Cholesterol 119 mg/dL (<200) 02/21/18 06:36 LDL Cholesterol Direct 52 mg/dL (75-193) L 02/21/18 06:36 HDL Cholesterol 53 mg/dL (23-92) 02/21/18 06:36 - Physical Exam Vitals and I&O: Vital Signs Temp 97.5 F 02/28/18 06:41 Pulse 66 02/28/18 06:41 Resp 18 02/28/18 06:41 BP 91/59 02/28/18 06:41 Pulse Ox 97 02/28/18 06:41 Intake & Output 02/27/18 02/28/18 02/28/18 18:59 06:59 18:59 Intake Total 800 180 Balance 800 180 Intake: Oral 800 180 Other: # Voids 3 2 # Bowel Movements 1 0 Stool Characteristics Soft Soft Soft Active Medications: Current Medications Acetaminophen (Tylenol) 650 mg PO Q4HR PRN PRN Reason: Mild Pain / Temp above 100 Stop: 04/22/18 02:29 Al Hydrox/Mg Hydrox/Simethicone (Maalox) 30 ml PO Q4HR PRN PRN Reason: GI DISTRESS Stop: 04/22/18 02:29 Atorvastatin Calcium (Lipitor) 40 mg PO DAILY [facility] Stop: 04/22/18 08:59 Last Admin: 02/28/18 08:40 Dose: 40 mg Diphenoxylate HCl/Atropine (Lomotil) 1 tab PO Q4H PRN PRN Reason: Diarrhea Stop: 04/26/18 11:56 Last Admin: 02/25/18 12:52 Dose: 1 tab Donepezil HCl (Aricept) 10 mg PO HS [facility] Stop: 04/22/18 20:59 Last Admin: 02/27/18 20:23 Dose: 10 mg Fluoxetine HCl (Prozac) 20 mg PO DAILY [facility] Stop: 04/23/18 08:59 Last Admin: 02/28/18 08:40 Dose: 20 mg Gabapentin (Neurontin) 300 mg PO HS [facility] Stop: 04/22/18 20:59 Last Admin: 02/27/18 20:23 Dose: 300 mg Insulin Aspart (Novolog) 0 units SUBQ ACHS [facility]; Protocol Stop: 04/22/18 16:29 Last Admin: 02/28/18 17:01 Dose: Not Given Levothyroxine Sodium (Synthroid) 0.05 mg PO QDAC [facility] Stop: 04/26/18 07:29 Last Admin: 02/28/18 06:34 Dose: 0.05 mg Lidocaine (Lidoderm 5% Patch) 1 patch TD DAILY [facility] Stop: 04/22/18 08:59 Last Admin: 02/28/18 08:40 Dose: Not Given Lorazepam (Ativan) 0.5 mg PO Q4HR PRN; Protocol PRN Reason: Anxiety Stop: 03/23/18 02:29 Last Admin: 02/24/18 12:42 Dose: 0.5 mg Magnesium Hydroxide (Milk Of Magnesia) 30 ml PO HS PRN PRN Reason: Constipation Memantine (Namenda) 5 mg PO DAILY [facility] Stop: 04/22/18 08:59 Last Admin: 02/28/18 08:40 Dose: 5 mg Metformin HCl (Glucophage) 500 mg PO BIDWM [facility] Stop: 04/22/18 07:59 Last Admin: 02/28/18 17:00 Dose: 500 mg Multivitamins/Vitamin C (Theragran) 1 tab PO DAILY [facility] Stop: 04/22/18 08:59 Last Admin: 02/28/18 08:40 Dose: 1 tab Zolpidem Tartrate (Ambien) 5 mg PO HS PRN PRN Reason: Insomnia Stop: 04/22/18 02:29 General: alert HEENT: NC/AT, PERRLA Neck: Supple Lungs: CTAB Cardiovascular: RRR, Normal S1, Normal S2, without murmur Abdomen: soft, non-tender, non-distended Extremities: excoriation Neurological: alert Internal Medicine Assmt/Plan - Assessment Assessment: SI HTN DM - Plan Plan: await for a1c fall precautions continue current plan of care Nutritional Asmnt/Malnutr-PDOC - Dietary Evaluation Malnutrition Findings (Please click <Entered> for more info): Nutritional Asmnt/Malnutrition Start: 02/25/18 09: 59 Text: Status: Complete Freq: Protocol: Document 02/25/18 09:59 CLEOPATRA (Rec: 02/25/18 10:05 CLEOPATRA JAMA- [email or web address]) Nutritional Asmnt/Malnutrition Patient General Information Diagnosis psychosis Pertinent Medical Hx/Surgical Hx HTN, DM, SI, high cholesterol, hypothyroidism Subjective Information Pt asleep at time of visit Current Diet Order/ Nutrition Support cardiac diabetic diet Pertinent Medications maalox, lipitor, novolog, synthroid, MOM, glucophage, theragran Pertinent Labs no labs Nutritional Hx/Data Height 5 ft 2 in Height (Calculated Centimeters) 157.5 Current Weight (lbs) 147 lb Weight (Calculated Kilograms) 66.7 Weight (Calculated Grams) 82025.1 Body Mass Index (BMI) 26.9 Weight Status Overweight GI Symptoms GI Symptoms None Last BM 02/24 Cultural/Ethnic/Voodoo Belief unknown Usual diet at home cardiac Skin Integrity/Comment: ramesh score 22 Current %PO Fair (50-74%) Estimated Nutritional Goals BEE in Kcals: Using Current wt Calories/Kcals/Kg 25-30kcals/kg Kcals Calculated 1675-2010kcals/day Protein: Using Current wt Protein g/kg/kg Protein Calculated 67g/day Fluid: ml 1675-2010ml/day (1ml/kcal) Nutritional Problem 1. Problem Problem No nutrition diagnosis at this time Intervention/Recommendation Comments Recommend continuing Cardiac diabetic diet. Expected Outcomes/Goals Expected Outcomes/Goals PO intake >75% of meals
--- NOTE | 2018-03-01 01:52 | Progress Notes ---
DATE: 02/28/2018 SUBJECTIVE: Staff was spoken to. The patient is interviewed. Mood is noted to be anxious and depressed. Affect is constricted. The patient's insight and judgement noted to be still impaired. The patient has been clearly informed that her daughter has been looking for some placement for her first before she can be taken to an ER. The patient has been hesitant with this, but the patient is willing to comply with that request. The high risk case manager is fully aware and they have been looking for placement. ASSESSMENT: The patient is still anxious and paranoid. PLAN: To continue the patient with the supportive therapy, encouraged the patient to verbalize the concerns rather than to act out. JOB# [id number]
[2018-03-01] MEDS: INSULIN ASPART, RECOMBINANT 100 UNITS/ML SUBQ SCH ×4 (06:34→21:04)
[2018-03-01] MEDS: Levothyroxine 0.05 Mg Tab PO SCH (06:38)
[2018-03-01] MEDS: Multivitamin Tab PO SCH (09:32)
[2018-03-01] MEDS: Lidocaine 5% Patch TD SCH (09:34)
--- NOTE | 2018-03-01 16:44 | Internal Medicine Prog Note ---
Internal Medicine Subjective - Subjective Service Date: 03/01/18 Patient is:: awake, verbal, interactive, other (with some confusion) Per staff patient has:: no adverse event, no episodes of fall, poor appetite, tolerating meds Internal Medicine Objective - Results Recent Labs: Laboratory Last Values POC Glucose 99 MG/DL (70 - 105) 03/01/18 05:52 Triglycerides 49 mg/dL (<150) 02/21/18 06:36 Cholesterol 119 mg/dL (<200) 02/21/18 06:36 LDL Cholesterol Direct 52 mg/dL (75-193) L 02/21/18 06:36 HDL Cholesterol 53 mg/dL (23-92) 02/21/18 06:36 - Physical Exam Vitals and I&O: Vital Signs Temp 97.4 F 03/01/18 14:00 Pulse 60 03/01/18 14:00 Resp 20 03/01/18 14:00 BP 116/76 03/01/18 14:00 Pulse Ox 98 03/01/18 14:00 Intake & Output 02/28/18 03/01/18 03/01/18 18:59 06:59 18:59 Intake Total 1200 240 Balance 1200 240 Intake: Oral 1200 240 Other: # Voids 4 3 # Bowel Movements 1 0 Stool Characteristics Soft Soft Soft Active Medications: Current Medications Acetaminophen (Tylenol) 650 mg PO Q4HR PRN PRN Reason: Mild Pain / Temp above 100 Stop: 04/22/18 02:29 Al Hydrox/Mg Hydrox/Simethicone (Maalox) 30 ml PO Q4HR PRN PRN Reason: GI DISTRESS Stop: 04/22/18 02:29 Atorvastatin Calcium (Lipitor) 40 mg PO DAILY [facility] Stop: 04/22/18 08:59 Last Admin: 03/01/18 09:31 Dose: 40 mg Diphenoxylate HCl/Atropine (Lomotil) 1 tab PO Q4H PRN PRN Reason: Diarrhea Stop: 04/26/18 11:56 Last Admin: 02/25/18 12:52 Dose: 1 tab Donepezil HCl (Aricept) 10 mg PO HS [facility] Stop: 04/22/18 20:59 Last Admin: 02/28/18 20:47 Dose: 10 mg Fluoxetine HCl (Prozac) 20 mg PO DAILY [facility] Stop: 04/23/18 08:59 Last Admin: 03/01/18 09:32 Dose: 20 mg Gabapentin (Neurontin) 300 mg PO HS [facility] Stop: 04/22/18 20:59 Last Admin: 02/28/18 20:47 Dose: 300 mg Insulin Aspart (Novolog) 0 units SUBQ ACHS [facility]; Protocol Stop: 04/22/18 16:29 Last Admin: 03/01/18 11:55 Dose: Not Given Levothyroxine Sodium (Synthroid) 0.05 mg PO QDAC [facility] Stop: 04/26/18 07:29 Last Admin: 03/01/18 06:38 Dose: 0.05 mg Lidocaine (Lidoderm 5% Patch) 1 patch TD DAILY [facility] Stop: 04/22/18 08:59 Last Admin: 03/01/18 09:34 Dose: 1 patch Lorazepam (Ativan) 0.5 mg PO Q4HR PRN; Protocol PRN Reason: Anxiety Stop: 03/23/18 02:29 Last Admin: 02/24/18 12:42 Dose: 0.5 mg Magnesium Hydroxide (Milk Of Magnesia) 30 ml PO HS PRN PRN Reason: Constipation Memantine (Namenda) 5 mg PO DAILY [facility] Stop: 04/22/18 08:59 Last Admin: 03/01/18 09:32 Dose: 5 mg Metformin HCl (Glucophage) 500 mg PO BIDWM [facility] Stop: 04/22/18 07:59 Last Admin: 03/01/18 08:55 Dose: Not Given Multivitamins/Vitamin C (Theragran) 1 tab PO DAILY [facility] Stop: 04/22/18 08:59 Last Admin: 03/01/18 09:32 Dose: 1 tab Zolpidem Tartrate (Ambien) 5 mg PO HS PRN PRN Reason: Insomnia Stop: 04/22/18 02:29 General: alert HEENT: NC/AT, PERRLA Neck: Supple Lungs: CTAB Cardiovascular: RRR, Normal S1, Normal S2, without murmur Abdomen: soft, non-tender, non-distended Extremities: excoriation Neurological: alert Internal Medicine Assmt/Plan - Assessment Assessment: SI HTN DM - Plan Plan: await for a1c fall precautions continue current plan of care Nutritional Asmnt/Malnutr-PDOC - Dietary Evaluation Malnutrition Findings (Please click <Entered> for more info): Nutritional Asmnt/Malnutrition Start: 02/25/18 09: 59 Text: Status: Complete Freq: Protocol: Document 02/25/18 09:59 CLEOPATRA (Rec: 02/25/18 10:05 CLEOPATRA JAMA- [email or web address]) Nutritional Asmnt/Malnutrition Patient General Information Diagnosis psychosis Pertinent Medical Hx/Surgical Hx HTN, DM, SI, high cholesterol, hypothyroidism Subjective Information Pt asleep at time of visit Current Diet Order/ Nutrition Support cardiac diabetic diet Pertinent Medications maalox, lipitor, novolog, synthroid, MOM, glucophage, theragran Pertinent Labs no labs Nutritional Hx/Data Height 5 ft 2 in Height (Calculated Centimeters) 157.5 Current Weight (lbs) 147 lb Weight (Calculated Kilograms) 66.7 Weight (Calculated Grams) 39824.1 Body Mass Index (BMI) 26.9 Weight Status Overweight GI Symptoms GI Symptoms None Last BM 02/24 Cultural/Ethnic/[employer]ist Belief unknown Usual diet at home cardiac Skin Integrity/Comment: ramesh score 22 Current %PO Fair (50-74%) Estimated Nutritional Goals BEE in Kcals: Using Current wt Calories/Kcals/Kg 25-30kcals/kg Kcals Calculated 1675-2010kcals/day Protein: Using Current wt Protein g/kg/kg Protein Calculated 67g/day Fluid: ml 1675-2010ml/day (1ml/kcal) Nutritional Problem 1. Problem Problem No nutrition diagnosis at this time Intervention/Recommendation Comments Recommend continuing Cardiac diabetic diet. Expected Outcomes/Goals Expected Outcomes/Goals PO intake >75% of meals
--- NOTE | 2018-03-02 02:34 | Progress Notes ---
DATE: 03/01/2018 SUBJECTIVE: Staff was spoken to. The patient is interviewed. Mood is noted to be less irritable. Affect is appropriate. The patient has been very tearful and crying yesterday and the patient has been informed that the daughter is willing to take her, but she wants the patient to be initially in a group home facility. creative services manager has been mentioning that the [facility] willing to accept the patient. The patient is currently on zolpidem 5 mg at bedtime for her sleep. The patient is also on 20 mg of the Prozac. PLAN: To continue the patient with the current medications and encouraged the patient to verbalize the concerns rather than to act out. JOB# [id number]
[2018-03-02] MEDS: INSULIN ASPART, RECOMBINANT 100 UNITS/ML SUBQ SCH (06:30)
[2018-03-02] MEDS: Levothyroxine 0.05 Mg Tab PO SCH (06:30)
[2018-03-02] MEDS: Diphenoxylate/Atropine 2.5mg Tab PO PRN (09:47)
--- NOTE | 2018-03-02 12:46 | Internal Medicine Prog Note ---
Internal Medicine Subjective - Subjective Patient seen and examined:: with staff, chart reviewed Patient is:: awake, verbal, interactive, other (with some confusion) Per staff patient has:: no adverse event, no episodes of fall, poor appetite, tolerating meds Internal Medicine Objective - Results Recent Labs: Laboratory Last Values POC Glucose 73 MG/DL (70 - 105) 03/01/18 21:01 Triglycerides 49 mg/dL (<150) 02/21/18 06:36 Cholesterol 119 mg/dL (<200) 02/21/18 06:36 LDL Cholesterol Direct 52 mg/dL (75-193) L 02/21/18 06:36 HDL Cholesterol 53 mg/dL (23-92) 02/21/18 06:36 - Physical Exam Vitals and I&O: Vital Signs Temp 98 F 03/02/18 05:33 Pulse 75 03/02/18 05:33 Resp 20 03/02/18 08:00 BP 109/52 03/02/18 05:33 Pulse Ox 98 03/02/18 05:33 Intake & Output 03/01/18 03/02/18 03/02/18 18:59 06:59 18:59 Intake Total 1000 120 Balance 1000 120 Intake: Oral 1000 120 Other: # Voids 3 3 # Bowel Movements 1 0 Stool Characteristics Soft Soft Soft Active Medications: Current Medications Acetaminophen (Tylenol) 650 mg PO Q4HR PRN PRN Reason: Mild Pain / Temp above 100 Stop: 04/22/18 02:29 Al Hydrox/Mg Hydrox/Simethicone (Maalox) 30 ml PO Q4HR PRN PRN Reason: GI DISTRESS Stop: 04/22/18 02:29 Atorvastatin Calcium (Lipitor) 40 mg PO DAILY [facility] Stop: 04/22/18 08:59 Last Admin: 03/01/18 09:31 Dose: 40 mg Diphenoxylate HCl/Atropine (Lomotil) 1 tab PO Q4H PRN PRN Reason: Diarrhea Stop: 04/26/18 11:56 Last Admin: 03/02/18 09:47 Dose: 1 tab Donepezil HCl (Aricept) 10 mg PO HS [facility] Stop: 04/22/18 20:59 Last Admin: 03/01/18 20:42 Dose: 10 mg Fluoxetine HCl (Prozac) 20 mg PO DAILY [facility] Stop: 04/23/18 08:59 Last Admin: 03/01/18 09:32 Dose: 20 mg Gabapentin (Neurontin) 300 mg PO HS [facility] Stop: 04/22/18 20:59 Last Admin: 03/01/18 20:42 Dose: 300 mg Insulin Aspart (Novolog) 0 units SUBQ ACHS [facility]; Protocol Stop: 04/22/18 16:29 Last Admin: 03/02/18 06:30 Dose: Not Given Levothyroxine Sodium (Synthroid) 0.05 mg PO QDAC [facility] Stop: 04/26/18 07:29 Last Admin: 03/02/18 06:30 Dose: 0.05 mg Lidocaine (Lidoderm 5% Patch) 1 patch TD DAILY [facility] Stop: 04/22/18 08:59 Last Admin: 03/01/18 09:34 Dose: 1 patch Lorazepam (Ativan) 0.5 mg PO Q4HR PRN; Protocol PRN Reason: Anxiety Stop: 03/23/18 02:29 Last Admin: 02/24/18 12:42 Dose: 0.5 mg Magnesium Hydroxide (Milk Of Magnesia) 30 ml PO HS PRN PRN Reason: Constipation Memantine (Namenda) 5 mg PO DAILY [facility] Stop: 04/22/18 08:59 Last Admin: 03/01/18 09:32 Dose: 5 mg Metformin HCl (Glucophage) 500 mg PO BIDWM [facility] Stop: 04/22/18 07:59 Last Admin: 03/01/18 17:31 Dose: 500 mg Multivitamins/Vitamin C (Theragran) 1 tab PO DAILY [facility] Stop: 04/22/18 08:59 Last Admin: 03/01/18 09:32 Dose: 1 tab Zolpidem Tartrate (Ambien) 5 mg PO HS PRN PRN Reason: Insomnia Stop: 04/22/18 02:29 Last Admin: 03/01/18 21:21 Dose: 5 mg General: alert HEENT: NC/AT, PERRLA Neck: Supple Lungs: CTAB Cardiovascular: RRR, Normal S1, Normal S2, without murmur Abdomen: soft, non-tender, non-distended Extremities: excoriation Neurological: alert Internal Medicine Assmt/Plan - Assessment Assessment: hypothyroidism high chol HTN DM - Plan Plan: await for a1c fall precautions continue current plan of care - Plan Plan: ada iss cont on synthroid cpm dw rn Nutritional Asmnt/Malnutr-PDOC - Dietary Evaluation Malnutrition Findings (Please click <Entered> for more info): Nutritional Asmnt/Malnutrition Start: 02/25/18 09: 59 Text: Status: Complete Freq: Protocol: Document 02/25/18 09:59 CLEOPATRA (Rec: 02/25/18 10:05 CLEOPATRA SCHREIBERN- [email or web address]) Nutritional Asmnt/Malnutrition Patient General Information Diagnosis psychosis Pertinent Medical Hx/Surgical Hx HTN, DM, SI, high cholesterol, hypothyroidism Subjective Information Pt asleep at time of visit Current Diet Order/ Nutrition Support cardiac diabetic diet Pertinent Medications maalox, lipitor, novolog, synthroid, MOM, glucophage, theragran Pertinent Labs no labs Nutritional Hx/Data Height 1.57 m Height (Calculated Centimeters) 157.5 Current Weight (lbs) 66.678 kg Weight (Calculated Kilograms) 66.7 Weight (Calculated Grams) 22489.1 Body Mass Index (BMI) 26.9 Weight Status Overweight GI Symptoms GI Symptoms None Last BM 02/24 Cultural/Ethnic/Spiritism Belief unknown Usual diet at home cardiac Skin Integrity/Comment: ramesh score 22 Current %PO Fair (50-74%) Estimated Nutritional Goals BEE in Kcals: Using Current wt Calories/Kcals/Kg 25-30kcals/kg Kcals Calculated 1675-2010kcals/day Protein: Using Current wt Protein g/kg/kg Protein Calculated 67g/day Fluid: ml 1675-2010ml/day (1ml/kcal) Nutritional Problem 1. Problem Problem No nutrition diagnosis at this time Intervention/Recommendation Comments Recommend continuing Cardiac diabetic diet. Expected Outcomes/Goals Expected Outcomes/Goals PO intake >75% of meals
--- NOTE | 2018-03-03 10:04 | Progress Notes ---
DATE: 03/02/2018 SUBJECTIVE: Staff was spoken to. The patient is interviewed. Mood is noted to be anxious. Affect is appropriate. Not suicidal or homicidal. Insight and judgment are noted to be fair. Impulse control is noted to be fair. The patient is motivated for treatment on an outpatient basis. The patient is hopeful that the daughter is going to be taking her to [place]. ASSESSMENT: The patient is stabilizing. PLAN: To discharge the patient today for followup on outpatient basis. [facility]# [id number]
== END 2018-03-02 17:30 | DRG 885 ==
LOC: GERO2 01:10 → GERO 02-22 16:39
PROVIDERS: ADMIT Psychiatry & Neurology Psychiatry; ATTEND Psychiatry & Neurology Psychiatry
DX: F29 Unspecified psychosis not due to a substance or known physiological condition (principal); F03.91 Unspecified dementia, unspecified severity, with behavioral disturbance; R45.851 Suicidal ideations; E03.9 Hypothyroidism, unspecified; I10 Essential (primary) hypertension; E11.9 Type 2 diabetes mellitus without complications; Z79.84 Long term (current) use of oral hypoglycemic drugs
CPT/HCPCS: 36415-UA; 80061-TC; 82948-90; 83036-90; G0410; J1815; Z7610